=== PATIENT | female | born 1990 | race Caucasian/White ===

== ENCOUNTER 2019-07-01 17:24 | Emergency (ER) | payer SELFPAY ==
--- OUTSIDE RECORDS SUMMARY | 2019-07-01 17:31 | XMS REPORT | Continuity of Care Document ---
Author Organization Unknown Address Unknown Phone Unavailable Allergies There is no data. Medications There is no data. Problems There is no data. Procedures There is no data. Results There is no data. Encounters ACCT No. Visit Date/Time Discharge Status Pt. Type Provider Facility Loc./Unit Complaint [id number] 07/01/2019 17:27:[address] Emergency TIM ALFORD DO Via [facility] ER 13 WKS PREG/LEAKING FLUID/BA CK PAIN
--- NOTE | 2019-07-01 18:05 | NUR ---
REGISTRATION STATES THAT PT LEFT AND HAS NOT CAME BACK.
== END 2019-07-01 18:05 | disposition left against medical advice (07) ==
LOC: ER 17:27
DX: O99.89 Other specified diseases and conditions complicating pregnancy, childbirth and the puerperium (principal); M54.5 Low back pain; Z3A.13 13 weeks gestation of pregnancy

== ENCOUNTER 2020-01-07 19:10 | Inpatient (IN) | payer MEDICAID ==
[~2020-01-07] VITALS: Ht 162 cm; Wt 101.2 kg
--- NOTE | 2020-01-07 19:20 | NUR ---
SHANNA TOVAR presented to unit via from ED, accompanied by s/o, with c/o CONTRACTIONS 40wks. SHANNA TOVAR weighed, gowned, voided, and to bed. EFHM and TOCO applied, VS taken. SHANNA TOVAR oriented to bed controls, call light, TV, heat, and A/C controls.
[2020-01-07 19:40] VITALS: BP 143/79
[2020-01-07 20:00] VITALS: BP 143/89
[2020-01-07 21:36] VITALS: BP 143/79
[2020-01-07 22:15] VITALS: BP 134/81
--- NOTE | 2020-01-07 22:16 | NUR ---
Pt put environmental geologist light, requesting to use the bathroom. Upon standing, pt c/o bilateral leg pain. States that it has been going on for the past week, with increasing in intensity for the last few days. Pt able to ambulated to the bathroom with standby assistance.
[2020-01-08] VITALS (50 sets, daily range): BP systolic 101–165; BP diastolic 55–105
[2020-01-08 01:14] LABS: BASOPHILS % (AUTO) 0 % (0-10); EOSINOPHILS # (AUTO) 0.1 10^3/uL (0.0-0.3); EOSINOPHILS % (AUTO) 1 % (0-10); HEMATOCRIT 23 % (35-52); HEMOGLOBIN 7.4 g/dL (11.5-16.0); LYMPHOCYTES # (AUTO) 2.5 10^3/uL (1.0-4.0); LYMPHOCYTES % (AUTO) 20 % (12-44); MEAN CORPUSCULAR HEMOGLOBIN 30 pg (25-34); MEAN CORPUSCULAR HGB CONC 32 g/dL (32-36); MEAN CORPUSCULAR VOLUME 91 fL (80-99); MEAN PLATELET VOLUME 11.8 fL (9.0-12.2); MONOCYTES # (AUTO) 0.8 10^3/uL (0.0-1.0); MONOCYTES % (AUTO) 6 % (0-12); NEUTROPHILS # (AUTO) 9.1 10^3/uL (1.8-7.8); NEUTROPHILS % (AUTO) 72 % (42-75); PLATELET COUNT 185 10^3/uL (130-400); WHITE BLOOD COUNT 12.6 10^3/uL (4.3-11.0)
[2020-01-08] MEDS: D5 LR IV SOLUTION 1,000 ML IV SCH ×2 (03:32→10:14)
[2020-01-08] MEDS ORDERED: NITR-65 PO (04:44)
[2020-01-08] MEDS ORDERED: PREN-142 PO (08:19)
--- NOTE | 2020-01-08 08:22 | History & Physical-OB ---
OB - Chief Complaint & HPI Date/Time Date of Admission: Date of Admission: Jan 07, 2020 at 19:53 Date seen by a Provider: Jan 08, 2020 Time Seen by a Provider: 08:16 Chief Complaint/History OB-Reason for Admission/Chief: Obstetrical Complication Hx : 5 Hx Para: 3 Expected Date of Delivery: Jan 07, 2020 Gestational Age in Weeks: 40 Gestational Age in Days: 1 Indication for induction: medical complication Other reason for admission: at 40w1d by LMP and second trimester US, transferred care at 40 weeks with complicated by polyhydramnios (apparently idiopathic, reports negative glucola). BPP 6/8 for breathing, admitted for IOL due to poly and abnormal BPP. History of Labs A neg, antibody neg. RI. HIV/HepB/RPR/HepC neg. Other Per pt report, negative GBS and glucola, records not available. Allergies and Home Medications Allergies Coded Allergies: No Known Drug Allergies (Unverified , 01/07/20) Home Medications Nitrofurantoin Monohyd/M-Cryst 100 Mg Capsule, 1 TAB PO BID, (Reported) Vit No.124/Iron/FA 1 Each Tablet, 1 EACH PO DAILY, (Reported) Patient Home Medication List Home Medication List Reviewed: Yes OB - History Hx of Present Ultrasounds: Other (40 week BPP with STERLING 29, vertex, 6/8 for breathing) Obstetrical Complications: Other (polyhydramnios, late transfer of care) Information Induced Hypertension: No Maternal Gestational Diabetes: No Hemorrhage: No Obstetrical History Hx : 5 Hx Para: 3 Hx # Term Pregnancies: 3 Hx # Pregnancies: 0 Number of Living Children: 3 Hx Termination: No Hx Total # of Abortions (Spona: 1 Hx Multiple Gestation: No Hx Ectopic : No Hx Stillbirth: No Hx Complication: Yes (polyhydramnios x 3) Hx Induced Hypertens: No Hx Maternal Gestational Diabet: No Hx Hemorrhage: No Delivery History Hx Dystocia: No Hx Forceps Assisted Delivery: No Hx Vacuum Extraction Assisted: Yes Hx Placenta Abnormality: No Hx Distress: No Hx Large For Gestational Age I: No Hx Small for Gestational Age I: No Hx Section: No Hx Vaginal Delivery Post C-Sec: No Hx Blood Disorders: No Adverse Rxn to Tranfusion: No Patient Past Medical History PMHx: Nephrolithiasis recurrent UTI SurgHx: Ureteral stents Social History/Family History HIV/AIDS: No Recent Infectious Disease Expo: No Sexually Transmitted Disease: No Alcohol Use: Denies Use Recreational Drug Use: No Smoking Cessation: Current every day smoker Immunizations Date of Influenza Vaccine: Nov 07, 2019 Rubella: immune RPR/VDRL: Negative GBS Status: Unknown HBsAG: Negative OB - Admission Exam Physical Exam Vitals: Vital Signs 01/07/20 01/08/20 01/08/20 21:36 03:30 06:30 Temp 36.4 Pulse 81 Resp 18 B/P (MAP) 142/80 (100) Pulse Ox 99 O2 Delivery Room Air HEENT: NCAT Abdomen: Non tender Cervical Dilatation: 4cm Effacement: 50% Station: -3 Membranes: Intact Heart Rate: 120's Accelerations: Accelerations Present Short Term Variability: Present Electrotyper Variability: Average (6-25) Contractions on Admission: >10 Minutes Apart Morales Scoring Tool (Modified) Dilation (cm): 3-4cm (2) Effacement (%): 51-79% (2) Descent/Station: -3 (0) Cervix Consistency: Soft (2) Cervix Position: Anterior (2) Add 1 point for: Each previous vaginal delivery (1) (3) Labs Laboratory Tests Test 01/08/20 00:30 01/08/20 01:05 01/08/20 06:49 Range/Units White Blood Count 12.6 H 4.3-11.0 10^3/uL Red Blood Count 2.51 L 3.80-5.11 10^6/uL Hemoglobin 7.4 L 11.5-16.0 g/dL Hematocrit 23 L 35-52 % Mean Corpuscular Volume 91 80-99 fL Mean Corpuscular Hemoglobin 30 25-34 pg Mean Corpuscular Hemoglobin Concent 32 32-36 g/dL Red Cell Distribution Width 15.2 H 10.0-14.5 % Platelet Count 185 130-400 10^3/uL Mean Platelet Volume 11.8 9.0-12.2 fL Immature Granulocyte % (Auto) 1 % Neutrophils (%) (Auto) 72 42-75 % Lymphocytes (%) (Auto) 20 12-44 % Monocytes (%) (Auto) 6 0-12 % Eosinophils (%) (Auto) 1 0-10 % Basophils (%) (Auto) 0 0-10 % Neutrophils # (Auto) 9.1 H 1.8-7.8 10^3/uL Lymphocytes # (Auto) 2.5 1.0-4.0 10^3/uL Monocytes # (Auto) 0.8 0.0-1.0 10^3/uL Eosinophils # (Auto) 0.1 0.0-0.3 10^3/uL Basophils # (Auto) 0.0 0.0-0.1 10^3/uL Immature Granulocyte # (Auto) 0.1 0.0-0.1 10^3/uL Glucometer 81 70-110 MG/DL OB - Assessment/Plan/Diagnosis Assessment Admission Dx Term intrauterine 40 weeks gestation Polyhydramnios Late transfer of care Blood type A neg Rubella Immune GBS unknown Admission Status: Inpatient Order (span 2 midnights) Reason for Inpatient Admission: Labor, delivery and course Plan Plan: Induction Induction Method: WILY RIVER MD Jan 08, 2020 08:22
--- NOTE | 2020-01-08 08:52 | NUR ---
anesthesia notified of pt's request for epidural placement
[2020-01-08] MEDS ORDERED: fentaNYL INJECTION 100 MCG/2 ML AMP ONE ×2 (09:06→17:03)
[2020-01-08] MEDS ORDERED: BUPIVACAINE 0.25% 30 ML (SENSORCAINE) VIAL ONE ×2 (09:07→18:01)
[2020-01-08] MEDS ORDERED: fentaNYL 2 mcg/ml BUPIVA 0.125 100 ML ONE (09:12)
[2020-01-08] MEDS ORDERED: OXYTOCIN PRE-MIX DRIP 500 ML IV SCH (09:12)
[2020-01-08] MEDS ORDERED: OXYTOCIN PRE-MIX DRIP 500 ML IV ONE (09:12)
[2020-01-08] MEDS ORDERED: LACTATED RINGERS 1,000 ML IV ONE ×3 (09:22→18:38)
[2020-01-08] MEDS ORDERED: fentaNYL 2 mcg/ml BUPIVA 0.125 100 ML IV SCH (09:22)
[2020-01-08] MEDS ORDERED: CATHETER FLUSH 10 ML SYR IV PRN (09:30)
[2020-01-08] MEDS ORDERED: NALOXONE 0.4 MG/ML 1 ML (NARCAN) VIAL IV PRN ×3 (09:30→18:45)
--- NOTE | 2020-01-08 10:06 | NUR ---
social services assistant here to see pt. Addendum: 01/08/20 at 1007 by DALILA KENDRICK RN error- wrong pt.
[2020-01-08 10:15] LABS: AMPHETAMINE SCREEN, URINE NEGATIVE (NEGATIVE); BARBITURATE SCREEN URINE NEGATIVE (NEGATIVE); BENZODIAZEPINES SCREEN URINE NEGATIVE (NEGATIVE); CANNABINOID SCREEN, URINE NEGATIVE (NEGATIVE); COCAINE SCREEN URINE NEGATIVE (NEGATIVE); METHADONE STAT NEGATIVE (NEGATIVE); METHAMPHETAMINE SCREEN URINE S NEGATIVE (NEGATIVE); OPIATE SCREEN URINE NEGATIVE (NEGATIVE); OXYCODONE STAT NEGATIVE (NEGATIVE); PROPOXYPHENE STAT NEGATIVE (NEGATIVE); TRICYCLIC ANTIDEPRESSANTS SCRE NEGATIVE (NEGATIVE)
[2020-01-08] MEDS ORDERED: CITRIC ACID/SOB CIT (BICITRA) 30 ML UDC PO ONE (16:30)
[2020-01-08] MEDS ORDERED: FAMOTIDINE 20MG/2ML IV (PEPCID) IV ONE (16:30)
[2020-01-08] MEDS ORDERED: LACTATED RINGERS 1,000 ML IV PRN (16:30)
[2020-01-08] MEDS ORDERED: METOCLOPRAMIDE INJ 10 MG/2 ML (REGLAN) IV ONE (16:30)
--- NOTE | 2020-01-08 16:33 | NUR ---
c/section consent signed, placed on chart.
[2020-01-08] MEDS ORDERED: METOCLOPRAMIDE INJ 10 MG/2 ML (REGLAN) ONE (16:34)
[2020-01-08] MEDS ORDERED: CITRIC ACID/SOB CIT (BICITRA) 30 ML UDC ONE (16:34)
[2020-01-08] MEDS ORDERED: FAMOTIDINE 20MG/2ML IV (PEPCID) ONE (16:34)
--- NOTE | 2020-01-08 16:42 | Labor Progress Note ---
Labor Progress Note Labor Progress Note Date Seen by Provider: Jan 08, 2020 Time Seen by Provider: 16:20 Subjective: Pt uncomfortable with contractions. Objective: (Can we insert 24 hour vitals here?) Cervical exam: Consistency: soft Position: anterior Presentation: vertex heart tones: 150 beats per minute, minimal variability, intermittent variable decelerations Tocometer: 3 ctx/10 minutes Assessment/Plan: Zeb Simmons is a (28 /Para 5 / 3,Gestational Age (wks)40 here for IOL for polyhydramnios and abnormal BPP. FSE/TOCO Pitocin held due to decels Anesthesia: Epidural No cervical change in active labor for over 2 hours with suspected LGA and variable decelerations, discussed with patient and recommend , she agrees, discussed with Dr. Tomlin who is also in agreement and will proceed to shortly. Vitals - Labs Vital Signs - I&O Vital Signs Date Time Temp Pulse Resp B/P (MAP) Pulse Ox O2 Delivery O2 Flow Rate FiO2 01/08/20 13:30 65 18 127/73 (91) 98 Room Air 01/08/20 13:15 66 18 133/77 (95) 99 Room Air 01/08/20 13:00 77 18 130/81 (97) 100 Room Air 01/08/20 12:45 77 18 130/81 (97) 100 Room Air 01/08/20 12:30 68 18 126/79 (95) 99 Room Air 01/08/20 12:15 64 18 135/83 (100) 99 Room Air 01/08/20 12:00 64 18 135/83 (100) 99 Room Air 01/08/20 11:45 65 18 131/74 (93) 99 Room Air 01/08/20 11:30 65 18 121/64 (83) 98 Room Air 01/08/20 11:15 65 18 131/73 (92) 97 Room Air 01/08/20 11:00 65 18 131/73 (92) 97 Room Air 01/08/20 10:45 65 18 105/61 (76) 98 Room Air 01/08/20 10:30 65 18 101/58 (72) 98 Room Air 01/08/20 10:15 37.0 68 18 108/60 (76) 99 Room Air 01/08/20 10:00 74 18 109/59 (76) 98 Room Air 01/08/20 09:50 75 18 112/55 (74) 99 Room Air 01/08/20 09:45 79 18 109/62 (78) 100 Room Air 01/08/20 09:40 79 18 111/55 (73) 99 Room Air 01/08/20 09:35 76 18 120/78 (92) 98 Room Air 01/08/20 09:30 78 18 136/63 (87) 100 Room Air 01/08/20 09:25 94 18 165/105 (125) 98 Room Air 01/08/20 09:15 69 18 125/77 (93) Room Air 01/08/20 09:00 77 18 128/73 (91) Room Air 01/08/20 08:30 64 18 121/69 (86) Room Air 01/08/20 08:20 70 18 131/77 (95) Room Air 01/08/20 07:45 37.2 70 18 121/75 (90) Room Air 01/08/20 06:30 81 18 142/80 (100) Room Air 01/08/20 03:30 36.4 71 18 133/81 (98) Room Air 01/07/20 22:15 36.6 68 18 134/81 (98) Room Air 01/07/20 21:36 36.6 77 18 99 Room Air 01/07/20 20:00 77 18 143/89 (107) Room Air 01/07/20 19:40 36.6 77 18 143/79 (100) 99 Room Air Labs Laboratory Tests 01/08/20 00:30: 01/08/20 01:05: White Blood Count 12.6H, Red Blood Count 2.51L, Hemoglobin 7.4L, Hematocrit 23L, Mean Corpuscular Volume 91, Mean Corpuscular Hemoglobin 30, Mean Corpuscular Hemoglobin Concent 32, Red Cell Distribution Width 15.2H, Platelet Count 185, Mean Platelet Volume 11.8, Immature Granulocyte % (Auto) 1, Neutrophils (%) (Auto) 72, Lymphocytes (%) (Auto) 20, Monocytes (%) (Auto) 6, Eosinophils (%) (Auto) 1, Basophils (%) (Auto) 0, Neutrophils # (Auto) 9.1H, Lymphocytes # (Auto) 2.5, Monocytes # (Auto) 0.8, Eosinophils # (Auto) 0.1, Basophils # (Auto) 0.0, Immature Granulocyte # (Auto) 0.1 01/08/20 06:49: Glucometer 81 01/08/20 09:45: Urine Opiates Screen NEGATIVE, Urine Oxycodone Screen NEGATIVE, Urine Methadone Screen NEGATIVE, Urine Propoxyphene Screen NEGATIVE, Urine Barbiturates Screen NEGATIVE, Ur Tricyclic Antidepressants Screen NEGATIVE, Urine Phencyclidine Screen NEGATIVE, Urine Amphetamines Screen NEGATIVE, Urine Methamphetamines Screen NEGATIVE, Urine Benzodiazepines Screen NEGATIVE, Urine Cocaine Screen NEGATIVE, Urine Cannabinoids Screen NEGATIVE WILY HERNÁNDEZ MD Jan 08, 2020 16:42
[2020-01-08] MEDS ORDERED: TERBUTALINE INJ 1 MG/ML (BRETHINE) AMP ONE (16:51)
[2020-01-08] MEDS ORDERED: D5 LR IV SOLUTION 1,000 ML IV SCH ×2 (16:53→18:10)
[2020-01-08] MEDS ORDERED: ceFAZolin 2 GM/50 ML (PRE-MIXED) IV NR (17:00)
[2020-01-08] MEDS ORDERED: metroNIDAZOLE 500MG/100ML IVPB 100 ML IV NR (17:00)
[2020-01-08] MEDS ORDERED: ceFAZolin INJECTION 2,000 MG in WATER (STERILE) FOR INJECTION 10 ML IV ONE (17:00)
--- NOTE | 2020-01-08 17:16 | NUR ---
transferred to OB c/s room via bed with OR staff @ side. pt stable. no sx's of distress noted.
[2020-01-08] MEDS ORDERED: KETAMINE/NaCl 50 MG/5 ML SYRINGE (ED ONLY) ONE ×2 (17:30→17:39)
[2020-01-08] MEDS ORDERED: MIDAZOLAM 2 MG/2 ML (VERSED) VIAL ONE (17:54)
[2020-01-08] MEDS ORDERED: proPOfol 200 MG/20 ML (DIPRIVAN) VIAL IV ONE ×2 (18:01→19:42)
[2020-01-08] MEDS ORDERED: BUPIVACAINE 0.5% 30 ML (SENSORCAINE) VIAL ONE (18:07)
[2020-01-08] MEDS ORDERED: ONDANSETRON 4 MG/2 ML (SDV) Z0FRAN IVP PRN (18:15)
[2020-01-08] MEDS ORDERED: MEASLES,MUMPS,RUBELLA 1 EA INJ SC ONE (18:15)
[2020-01-08] MEDS ORDERED: TETANUS,DIPTH,PERTUSS P/F (BOOSTRIX) 0.5 ML VIAL IM ONE (18:15)
[2020-01-08] MEDS ORDERED: EPIDURAL (fentaNYL 2 MCG/ML BUPIVA 0.125%)100 ML BAG EPI PRN (18:45)
[2020-01-08] MEDS ORDERED: METOCLOPRAMIDE INJ 10 MG/2 ML (REGLAN) IV PRN (18:45)
[2020-01-08] MEDS ORDERED: ONDANSETRON 4 MG/2 ML (SDV) Z0FRAN IV PRN (18:45)
[2020-01-08] MEDS ORDERED: diphenhydrAMINE 50 MG/ML INJ (BENADRYL) IV PRN (18:45)
[2020-01-08] MEDS ORDERED: OXYTOCIN PRE-MIX DRIP 1,000 ML IV ONE (19:42)
[2020-01-08] MEDS: KETOROLAC 30 MG/ML VIAL IVP SCH (19:46)
[2020-01-08] MEDS: OXYTOCIN PRE-MIX DRIP 500 ML IV SCH (20:04)
[2020-01-08] MEDS: oxyCODONE/APAP 10/325MG (PERCOCET 10) TABLET PO PRN (20:04)
[2020-01-08] MEDS: DOCUSATE SODIUM 100 MG (COLACE) CAP PO SCH (20:05)
[2020-01-08] MEDS ORDERED: DOCUSATE SODIUM 100 MG (COLACE) CAP PO SCH (21:00)
[2020-01-08] MEDS: CATHETER FLUSH 10 ML SYR IV SCH ×3 (21:03→23:58)
[2020-01-09 00:03] VITALS: BP 133/68
[2020-01-09] MEDS: OXYTOCIN PRE-MIX DRIP 500 ML IV SCH (00:03)
[2020-01-09] MEDS: KETOROLAC 30 MG/ML VIAL IVP SCH ×2 (01:17→07:35)
[2020-01-09] MEDS: oxyCODONE/APAP 10/325MG (PERCOCET 10) TABLET PO PRN ×3 (01:17→21:08)
[2020-01-09 04:00] VITALS: BP 130/73
--- NOTE | 2020-01-09 04:06 | OPERATIVE REPORT ---
DATE OF SERVICE: 01/08/2020 PREOPERATIVE DIAGNOSIS: Term in labor with polyhydramnios and failure to progress in labor. POSTOPERATIVE DIAGNOSES: Term in labor with polyhydramnios and failure to progress in labor with persistent OP. OPERATIVE PROCEDURE: Primary low transverse delivery of a viable male infant with Apgars of 8 and 9 at 1 and 5 minutes respectively, weight of 8 pounds 12 ounces. time of 1742 and a cord blood gas pH of 7.28. EMPLOYEE RELATIONS ADMINISTRATOR FOR DELIVERY: Dr. Oh. OPERATIVE DESCRIPTION: With the patient in the supine position under satisfactory epidural analgesia, she was prepped and draped in the usual fashion for abdominal surgery. Ivan catheter had been placed in the urinary bladder that was left to dependent drainage. A Pfannenstiel incision was made through the skin with scalpel, the patient's abdomen entered in the usual manner. Bladder retractor placed in position, clean scalpel used to make a 4 cm hysterotomy incision transversely across the lower uterine segment. That was extended by blunt dissection as well. Roberson forceps were applied to facilitate the delivery of the male infant with Apgars and stats as noted above. The was delivered from a straight OP position. On delivery of the head, there was a single nuchal cord that was easily released. The infant was then bulb suctioned on completion of delivery. The umbilical cord doubly clamped and cut and the infant passed to Dr. Oh, qualitative executive researcher in attendance for delivery. Cord bloods were obtained. The placenta delivered spontaneously Roman. It was normal with a 3-vessel cord. The uterus was exteriorized. wiped clean with a wet laparotomy sponge. Uterine incision closed with running locked suture of 2-0 Vicryl. The uterine incision had extended down the extent of the left margin of the incision down to the vagina. This was repaired concurrent with repairing the hysterotomy incision. The uterus was quite boggy at this point. A modified B-Oconnell suture was placed using 2-0 chromic sutures in the usual modified manner, this compressed uterus nicely and controlled the blood loss. With the B-Oconnell suture was placed, the uterus was now returned to the abdominal cavity. All blood clot and debris was removed from the abdominal cavity. With sponge and needle counts correct and hemostasis assured, the anterior parietal peritoneum was closed with running suture of 2-0 Vicryl. Rectus muscles were closed with that suture as well. The rectus fascia was closed with 2-0 Vicryl, subcutaneous tissue was closed with 2-0 Vicryl and the skin was stapled. Sponge and needle counts were correct on completion of the procedure. Estimated blood loss was around a liter. The patient tolerated the procedure well and was transferred to the recovery room in stable condition. The had been taken stable to the full term nursery under the care of Dr. Oh. Job ID: [id number] DocumentID: [id number] Dictated Date: 01/08/2020 18:19:10 Poured Pipe Maker Date: 01/09/2020 03:26:22 Dictated By: JUSTIN BROWN MD
--- NOTE | 2020-01-09 07:10 | Anesthesia-Regional Post-Op ---
Regional Patient Condition Mental Status: Alert, Oriented x3 Circulation: Same as Pre-Op Headache: Absent Sensation: Full Recovery Motor Block: Absent Post Op Complications Complications None Follow Up Care/Instructions Patient Instructions None needed. Anesthesia/Patient Condition Patient is doing well, no complaints, stable vital signs, no apparent adverse anesthesia problems. No complications reported per nursing. CANELO SUMNER CRNA Jan 09, 2020 07:10
[2020-01-09] MEDS: DOCUSATE SODIUM 100 MG (COLACE) CAP PO SCH ×2 (07:35→21:00)
[2020-01-09 07:37] VITALS: BP 120/71
--- NOTE | 2020-01-09 07:40 | NUR ---
RN to room for assessment. VSS. Incision site ALONDRA with margo, no bleeding or drainage from site. Pt reports minimal bleeding and denies clots. Pt requests shower at this time. IV removed. No redness or swelling at site. Pt encouraged to push call light if she becomes lightheaded or needs anything while showering. Pt educated on incision site care, verbalizes understanding. Pt denies any needs or concerns at this time
--- NOTE | 2020-01-09 08:19 | Progress Note ---
Standard Progress Note Progress Notes/Assess & Plan Date Seen by a Provider: Jan 09, 2020 Time Seen by a Provider: 08:17 Progress/Assessment & Plan This patient is without complaint. She is ambulating, voiding, tolerating oral intake well and has good pain control. Vital Signs Date Time Temp Pulse Resp B/P (MAP) Pulse Ox O2 Delivery O2 Flow Rate FiO2 01/09/20 07:37 36.3 82 18 120/71 (87) 100 Room Air 01/09/20 04:00 36.3 76 18 130/73 (92) 98 Room Air 01/09/20 00:03 37.2 73 18 133/68 (89) 98 Room Air 01/08/20 19:15 37.3 97 18 130/65 (86) 99 Room Air 01/08/20 19:10 37.0 20 135/84 (101) 96 Room Air 01/08/20 19:10 Room Air 01/08/20 19:00 Room Air 01/08/20 19:00 20 134/86 (102) 96 Room Air 01/08/20 18:50 20 134/82 (99) 97 Room Air 01/08/20 18:45 Room Air 01/08/20 18:40 20 134/82 (99) 96 Room Air 01/08/20 18:30 20 117/73 (88) 97 Room Air 01/08/20 18:30 Room Air 01/08/20 18:19 37.4 20 113/71 (85) 97 Room Air 01/08/20 18:19 Room Air 01/08/20 17:15 120 18 134/78 (96) 100 Room Air 01/08/20 17:00 105 18 153/70 (97) 100 Room Air 01/08/20 16:45 87 18 110/64 (79) 100 Room Air 01/08/20 16:30 75 18 111/66 (81) 99 Room Air 01/08/20 16:23 37.2 01/08/20 16:15 80 18 133/76 (95) 98 Room Air 01/08/20 16:00 76 18 125/77 (93) 99 Room Air 01/08/20 15:45 88 18 137/92 (107) 99 Room Air 01/08/20 15:30 96 18 126/64 (84) 100 Room Air 01/08/20 15:15 74 18 126/64 (84) 99 Room Air 01/08/20 15:00 74 18 126/71 (89) 99 Room Air 01/08/20 14:45 69 18 126/78 (94) 98 Room Air 01/08/20 14:30 74 18 104/65 (78) 97 Room Air 01/08/20 14:15 81 18 124/70 (88) 98 Room Air 01/08/20 14:00 71 18 102/62 (75) 96 Room Air 01/08/20 13:48 37.0 01/08/20 13:45 66 18 134/80 (98) 99 Room Air 01/08/20 13:30 65 18 127/73 (91) 98 Room Air 01/08/20 13:15 66 18 133/77 (95) 99 Room Air 01/08/20 13:00 77 18 130/81 (97) 100 Room Air 01/08/20 12:45 77 18 130/81 (97) 100 Room Air 01/08/20 12:30 68 18 126/79 (95) 99 Room Air 01/08/20 12:15 64 18 135/83 (100) 99 Room Air 01/08/20 12:00 64 18 135/83 (100) 99 Room Air 01/08/20 11:45 65 18 131/74 (93) 99 Room Air 01/08/20 11:30 65 18 121/64 (83) 98 Room Air 01/08/20 11:15 65 18 131/73 (92) 97 Room Air 01/08/20 11:00 65 18 131/73 (92) 97 Room Air 01/08/20 10:45 65 18 105/61 (76) 98 Room Air 01/08/20 10:30 65 18 101/58 (72) 98 Room Air 01/08/20 10:15 37.0 68 18 108/60 (76) 99 Room Air 01/08/20 10:15 37.0 68 18 108/60 (76) 99 Room Air 01/08/20 10:00 74 18 109/59 (76) 98 Room Air 01/08/20 09:50 75 18 112/55 (74) 99 Room Air 01/08/20 09:45 79 18 109/62 (78) 100 Room Air 01/08/20 09:40 79 18 111/55 (73) 99 Room Air 01/08/20 09:35 76 18 120/78 (92) 98 Room Air 01/08/20 09:30 78 18 136/63 (87) 100 Room Air 01/08/20 09:25 94 18 165/105 (125) 98 Room Air 01/08/20 09:15 69 18 125/77 (93) Room Air 01/08/20 09:00 77 18 128/73 (91) Room Air 01/08/20 08:30 64 18 121/69 (86) Room Air 01/08/20 08:20 70 18 131/77 (95) Room Air I & O 01/09/20 07:00 Intake Total 4450 ml Output Total 1260 ml Balance 3190 ml Vital signs are stable. Patient is afebrile. The abdomen is benign the surgical incision is clean dry and intact. Fundus is firm nontender and below the umbilicus. Extremities show no clubbing or cyanosis. There is no Homans' sign. Assessment and plan postoperative day #1 status post primary delivery at 40+ weeks gestation. Patient is doing well will have routine convalescent care JUSTIN BROWN MD Jan 09, 2020 08:19
[2020-01-09] MEDS ORDERED: IBUP-1780 PO (08:28)
[2020-01-09] MEDS ORDERED: DCS100C PO (08:28)
[2020-01-09] MEDS ORDERED: OXYC1TAB12 PO (08:28)
--- NOTE | 2020-01-09 08:29 | Discharge Inst-Surgical ---
Discharge Inst-Surgical Depart Medication/Instructions New, Converted or Re-Newed RX: RX on Chart Consults/Follow Up Patient Instructions: As directed Orders & Referrals Follow Up Appt: RTC 1 week for incision check With Dr. Tomlin. Call to make follow up appt. for patient in [address] Oh. Wound Care: Remove margo, apply benzoin and steri strips. Activity Per routine post instructions. Please call in RX to patient pharmacy. Diet as tolerated Patient may shower or tub bathe as desired. Continue home meds Activity Activity as Tolerated: No Diet Discharge Diet: No Restrictions JUSTIN TOMLIN MD Jan 09, 2020 08:29
--- NOTE | 2020-01-09 11:02 | NUR ---
CM/SS visited with patient for social service consult. No DCF report was made. The patient (mother of baby), was lying in bed with the baby (Ramiro) while the Father of baby (FOB) was on the couch. The patient and FOB were pleasant and willing to discuss discharge plans. Home: The patient and FOB own a home together and live with their 2-year-old daughter. Resources: The patient reports they have a car seat, crib, changing table, and diapers. They report they have everything at home they need at this time. The patient is connected already with [facility] and has an appointment on the . Drug Use: The patient stated that she does have a past history with drug use years ago after she lost custody of her 2nd child. She states she has since then been clean and "will never touch that stuff again". The patient's Urinary drug screen was negative. She denies current use. Supports: The patient's significant other and FOB is a good support for the patient. She reports that this relationship has helped her through past traumas. They have been together for 2 years. The patient is not close with any of her family but is close with her FOB's family. The FOB is employed and is the main provider financially. CM/SS will continue to follow.
[2020-01-09 12:08] VITALS: BP 123/71
[2020-01-09] MEDS ORDERED: IBUPROFEN 800 MG (MOTRIN) TAB PO ONE (13:56)
[2020-01-09] MEDS: IBUPROFEN 800 MG (MOTRIN) TAB PO SCH ×2 (13:59→21:01)
[2020-01-09 16:04] VITALS: BP 128/71
[2020-01-09 20:05] VITALS: BP 121/78
--- NOTE | 2020-01-09 20:05 | NUR ---
INITIAL SHIFT ASSESSMENT DONE.
--- NOTE | 2020-01-10 02:05 | NUR ---
PT REFUSES MOTRIN AT THIS TIME.
--- NOTE | 2020-01-10 03:10 | NUR ---
PT REPORTS INCREASED ABD PAIN WITH , BUT DOESN'T WANT TO TAKE ANY MEDS. ENCOURAGED TO TAKE MOTRIN AND PT AGREES.
[2020-01-10 03:12] VITALS: BP 107/68
[2020-01-10] MEDS: IBUPROFEN 800 MG (MOTRIN) TAB PO SCH (03:17)
--- NOTE | 2020-01-10 06:15 | NUR ---
PT DENIES ANY NEEDS AT THIS TIME.
--- NOTE | 2020-01-10 07:30 | NUR ---
Dr Tomlin here to see pt. Orders for d/c rec'd
--- NOTE | 2020-01-10 07:38 | Progress Note ---
Standard Progress Note Progress Notes/Assess & Plan Date Seen by a Provider: Jan 10, 2020 Time Seen by a Provider: 07:36 Progress/Assessment & Plan This patient is without complaint. She is ambulating, voiding, tolerating oral intake well and has good pain control. Vital Signs Date Time Temp Pulse Resp B/P (MAP) Pulse Ox O2 Delivery O2 Flow Rate FiO2 01/09/20 07:37 36.3 82 18 120/71 (87) 100 Room Air 01/09/20 04:00 36.3 76 18 130/73 (92) 98 Room Air 01/09/20 00:03 37.2 73 18 133/68 (89) 98 Room Air 01/08/20 19:15 37.3 97 18 130/65 (86) 99 Room Air 01/08/20 19:10 37.0 20 135/84 (101) 96 Room Air 01/08/20 19:10 Room Air 01/08/20 19:00 Room Air 01/08/20 19:00 20 134/86 (102) 96 Room Air 01/08/20 18:50 20 134/82 (99) 97 Room Air 01/08/20 18:45 Room Air 01/08/20 18:40 20 134/82 (99) 96 Room Air 01/08/20 18:30 20 117/73 (88) 97 Room Air 01/08/20 18:30 Room Air 01/08/20 18:19 37.4 20 113/71 (85) 97 Room Air 01/08/20 18:19 Room Air 01/08/20 17:15 120 18 134/78 (96) 100 Room Air 01/08/20 17:00 105 18 153/70 (97) 100 Room Air 01/08/20 16:45 87 18 110/64 (79) 100 Room Air 01/08/20 16:30 75 18 111/66 (81) 99 Room Air 01/08/20 16:23 37.2 01/08/20 16:15 80 18 133/76 (95) 98 Room Air 01/08/20 16:00 76 18 125/77 (93) 99 Room Air 01/08/20 15:45 88 18 137/92 (107) 99 Room Air 01/08/20 15:30 96 18 126/64 (84) 100 Room Air 01/08/20 15:15 74 18 126/64 (84) 99 Room Air 01/08/20 15:00 74 18 126/71 (89) 99 Room Air 01/08/20 14:45 69 18 126/78 (94) 98 Room Air 01/08/20 14:30 74 18 104/65 (78) 97 Room Air 01/08/20 14:15 81 18 124/70 (88) 98 Room Air 01/08/20 14:00 71 18 102/62 (75) 96 Room Air 01/08/20 13:48 37.0 01/08/20 13:45 66 18 134/80 (98) 99 Room Air 01/08/20 13:30 65 18 127/73 (91) 98 Room Air 01/08/20 13:15 66 18 133/77 (95) 99 Room Air 01/08/20 13:00 77 18 130/81 (97) 100 Room Air 01/08/20 12:45 77 18 130/81 (97) 100 Room Air 01/08/20 12:30 68 18 126/79 (95) 99 Room Air 01/08/20 12:15 64 18 135/83 (100) 99 Room Air 01/08/20 12:00 64 18 135/83 (100) 99 Room Air 01/08/20 11:45 65 18 131/74 (93) 99 Room Air 01/08/20 11:30 65 18 121/64 (83) 98 Room Air 01/08/20 11:15 65 18 131/73 (92) 97 Room Air 01/08/20 11:00 65 18 131/73 (92) 97 Room Air 01/08/20 10:45 65 18 105/61 (76) 98 Room Air 01/08/20 10:30 65 18 101/58 (72) 98 Room Air 01/08/20 10:15 37.0 68 18 108/60 (76) 99 Room Air 01/08/20 10:15 37.0 68 18 108/60 (76) 99 Room Air 01/08/20 10:00 74 18 109/59 (76) 98 Room Air 01/08/20 09:50 75 18 112/55 (74) 99 Room Air 01/08/20 09:45 79 18 109/62 (78) 100 Room Air 01/08/20 09:40 79 18 111/55 (73) 99 Room Air 01/08/20 09:35 76 18 120/78 (92) 98 Room Air 01/08/20 09:30 78 18 136/63 (87) 100 Room Air 01/08/20 09:25 94 18 165/105 (125) 98 Room Air 01/08/20 09:15 69 18 125/77 (93) Room Air 01/08/20 09:00 77 18 128/73 (91) Room Air 01/08/20 08:30 64 18 121/69 (86) Room Air 01/08/20 08:20 70 18 131/77 (95) Room Air I & O 01/09/20 07:00 Intake Total 4450 ml Output Total 1260 ml Balance 3190 ml Vital signs are stable. Patient is afebrile. The abdomen is benign the surgical incision is clean dry and intact. Fundus is firm nontender and below the umbilicus. Extremities show no clubbing or cyanosis. There is no Homans' sign. Assessment and plan postoperative day #1 status post primary delivery at 40+ weeks gestation. Patient is doing well will have routine convalescent care January 10, 2020 Patient is without complaint. She is ambulating, voiding, tolerating oral intake well and requesting discharge home. Vital Signs Date Time Temp Pulse Resp B/P (MAP) Pulse Ox O2 Delivery O2 Flow Rate FiO2 01/10/20 03:12 36.3 66 18 107/68 (81) 99 Room Air 01/09/20 20:05 36.8 80 18 121/78 (92) 99 Room Air 01/09/20 16:04 37.0 75 18 128/71 (90) 97 Room Air 01/09/20 12:08 37.2 81 18 123/71 (88) 98 Room Air 01/09/20 11:00 Room Air I & O 01/10/20 07:00 Intake Total 720 ml Output Total 1000 ml Balance -280 ml Vital signs are stable. Patient is afebrile. Fundus is firm below the umbilicus and nontender. The surgical incision is mallory an dry intact. Extremities show no clubbing cyanosis. There is no Homans' sign. Assessment and plan postoperative day #2 status post primary delivery at 40+ weeks gestation. Plan is for discharge home with follow-up in clinic Final Diagnosis 40-week primary delivery JUSTIN BROWN MD Jan 10, 2020 07:38
--- NOTE | 2020-01-10 07:42 | Discharge Summary ---
Discharge Summary 40-week primary delivery This patient is a 28-year-old patient of Dr. Oh who presented on January 07, 2020 and spontaneous labor. She labored through the night and through the day on January 08, 2020. By the evening of January 07 she had demonstrated progress to 8 cm where she stalled for over 5-hour. The heart rate pattern developed into a category [address] Oh requested delivery for failure to progress with a category 2 heart tracing. Patient was taken to the operating room for primary delivery which was performed without event. The patient recovered uneventfully. On postoperative day #1 the patient was ambulating, voiding, tolerating oral intake well and had good pain control. On postoperative day 2 now the patient is ambulating and voiding well tolerating oral intake and has good pain control. Patient was requesting discharge home and plan was for allow discharge home on postoperative day #2. Principal diagnosis this hospitalization is primary delivery Secondary diagnoses include spontaneous labor, failure to progress in, persis tent OP position, category 2 heart rate tracing Operations and procedures include monitor, Pitocin augmentation of labor, epidural labor analgesia, primary delivery Patient was given appropriate discharge instructions verbally and in writing and a copy was also placed in the chart. Discharge medications are Percocet Motrin and Colace-patient is to continue her home vitamin Clinical Quality Measures DVT/VTE Risk/Contraindication: Risk Factor Score Per Nursin RFS Level Per Nursing on Admit: 2=Moderate JUSTIN BROWN MD Jan 10, 2020 07:42
[2020-01-10 08:13] VITALS: BP 134/92
--- NOTE | 2020-01-10 08:34 | NUR ---
Megan removed per this RN and steri strips applied to incision. Incision with well approximated edges, no drainage. Discharge instructions given following staple removal, with copy of instructions provided to pt along with narcotic script. Pt made aware of follow up appointments and other medications available at [facility]. No questions or concerns voiced at this time. Pt verbalizes understanding of instructions and signs to verify. Pt notified of need to wait for infant instructions prior to dismissal.
--- NOTE | 2020-01-10 08:45 | NUR ---
Prescriptions called in to [facility] per pt request
[2020-01-10] MEDS: DOCUSATE SODIUM 100 MG (COLACE) CAP PO SCH (09:05)
[2020-01-10] MEDS: oxyCODONE/APAP 10/325MG (PERCOCET 10) TABLET PO PRN (09:06)
--- NOTE | 2020-01-10 10:00 | NUR ---
Pt taken off unit via wheelchair accompanied by S.O., , and RN to private vehicle with all personal belongings. No s/s of distress noted.
== END 2020-01-10 10:00 | disposition home or self-care (01) | DRG 788 ==
LOC: WSo 19:10 → EDBD 19:10 → LDRP 19:12 → WSo 19:53 → LDRP 19:53
PROVIDERS: ADMIT Family Medicine; ATTEND Family Medicine
PROC: 10D00Z1 Extraction of Products of Conception, Low, Open Approach (ICD-10-PCS; principal; 2020-01-08 17:18)
DX: O48.0 Post-term pregnancy (principal); O40.3XX0 Polyhydramnios, third trimester, not applicable or unspecified; Z3A.40 40 weeks gestation of pregnancy; Z37.0 Single live birth; O62.0 Primary inadequate contractions; O64.0XX0 Obstructed labor due to incomplete rotation of fetal head, not applicable or unspecified
CPT/HCPCS: 36415; 80306; 82962; 85025; 86780; 86850; 86900; 86901; 87081; 87635; 94664; 99212

== ENCOUNTER 2021-02-14 18:37 | Outpatient (CLI) | payer MEDICAID ==
[~2021-02-14] VITALS: Ht 162.6 cm; Wt 98.8 kg
[~2021-02-14 18:37] MED LIST: DOCU-239 PO; IBUP-1780 PO; NITR-65 PO; OXYC1TAB12 PO; PREN-142 PO
[2021-02-14 19:11] LABS: BILIRUBIN,URINE NEGATIVE (NEGATIVE); CLARITY,URINE SL CLOUDY; COLOR,URINE YELLOW; GLUCOSE, URINE (UA) NEGATIVE (NEGATIVE); KETONES,URINE NEGATIVE (NEGATIVE); LEUKOCYTE ESTERASE ,URINE 3+ (NEGATIVE); NITRITE,URINE POSITIVE (NEGATIVE); PROTEIN,URINE 2+ (NEGATIVE)
[2021-02-14 19:14] VITALS: BP 109/64
[2021-02-14 19:17] VITALS: BP 109/64
[2021-02-14 19:18] LABS: BACTERIA,URINE LARGE /HPF; WBC,URINE 50-100 /HPF
[2021-02-14 19:22] VITALS: BP 109/64
--- NOTE | 2021-02-15 08:30 | Physician Query-Final Dx ---
Clinic Account Progress/Dx Physician Query: Please give diagnosis Please include # weeks gestation Date of Service Feb 14, 2021 at 18:37 NELSY,FebFeb 15, 2021 08:30
== END 2021-02-14 19:45 ==
LOC: WSo 18:37
PROVIDERS: ATTEND Family Medicine
DX: Z34.90 Encounter for supervision of normal pregnancy, unspecified, unspecified trimester (principal); Z3A.00 Weeks of gestation of pregnancy not specified
CPT/HCPCS: 81000; 87088; 99213

== ENCOUNTER 2021-04-08 10:47 | Outpatient (CLI) | payer MEDICAID ==
[2021-04-08 11:11] VITALS: BP 122/80
[2021-04-08] MEDS ORDERED: NS IV 1000 ML 1,000 ML ONE (11:55)
[2021-04-08] MEDS ORDERED: NS IV 1000 ML 1,000 ML IV SCH (12:00)
[2021-04-08 12:27] LABS: BILIRUBIN,URINE NEGATIVE (NEGATIVE); CLARITY,URINE CLOUDY; COLOR,URINE DARK YELLOW; GLUCOSE, URINE (UA) NEGATIVE (NEGATIVE); KETONES,URINE 1+ (NEGATIVE); NITRITE,URINE POSITIVE (NEGATIVE); PH,URINE 7.3 (5-9); PROTEIN,URINE 3+ (NEGATIVE)
[2021-04-08 12:28] LABS: BACTERIA,URINE LARGE /HPF; LEUKOCYTE ESTERASE ,URINE 3+ (NEGATIVE); RBC,URINE TNTC /HPF; WBC,URINE TNTC /HPF
[2021-04-08] MEDS ORDERED: cefTRIAXone 1 GM PRE-MIX 50 ML IV NR (14:00)
--- NOTE | 2021-04-09 08:16 | Physician Query-Final Dx ---
NELSY,04/09/21 0816: Clinic Account Progress/Dx Physician Query: Please give diagnosis Please include # weeks gestation Date of Service Apr 08, 2021 at 10:47 WILY HERNÁNDEZ MD 04/09/21 1517: Clinic Account Progress/Dx DIAGNOSIS: Diagnosis Third trimester 35 weeks gestation Urinary tract infection in Contractions without cervical change NELSY,FebApr 09, 2021 08:16 WILY HERNÁNDEZ MD Apr 09, 2021 15:17
== END 2021-04-08 14:55 | disposition home or self-care (01) ==
LOC: WSo 10:47 → LDRP 10:47 → WSo 14:55
PROVIDERS: ATTEND Family Medicine
DX: O47.03 False labor before 37 completed weeks of gestation, third trimester (principal); O23.43 Unspecified infection of urinary tract in pregnancy, third trimester; Z3A.35 35 weeks gestation of pregnancy
CPT/HCPCS: 81000; 87088; 96361; 96374; G0463; 99214

== ENCOUNTER 2021-08-25 12:00 | Emergency (ER) | payer MEDICAID ==
[~2021-08-25] VITALS: Ht 162.7 cm; Wt 98.8 kg
[2021-08-25 12:12] VITALS: BP 126/85
--- NOTE | 2021-08-25 12:36 | ED Back Pain ---
General Stated Complaint: BACK PAIN Source of Information: Patient Exam Limitations: No Limitations History of Present Illness Date Seen by Provider: Aug 25, 2021 Time Seen by Provider: 12:34 Initial Comments Patient is a 30-year-old female who presents ED with lower back pain. Back pain over the past week. Pain is described as sharp worse with getting up and moving around. She also describes some spasming type pain on the right sided lower back. Pain does appear to radiate to her right upper thigh. She denies of any bowel or urine incontinence, saddle paresthesia, fever, weight loss, drug use. She had a similar type pain few months ago. She states she had a with an epidural earlier this year. She states she has been taken Tylenol ibuprofen. No falls, urinary symptoms, abdominal pain, vomiting, diarrhea, drug use. Allergies and Home Medications Allergies Coded Allergies: No Known Drug Allergies (Unverified , 01/07/20) Patient Home Medication List Home Medication List Reviewed: Yes Cephalexin (Cephalexin) 500 Mg Tablet, 500 MG PO TID Prescribed by: RENITA AGUERO on 08/25/21 1335 Hydrocodone/Acetaminophen (Hydrocodone-Acetamin 5-325 mg) 5 Mg-325 Mg Tablet, 1 TAB PO Q4H PRN for PAIN-MODERATE (5-7) Prescribed by: RENITA AGUERO on 08/25/21 1335 Vit No.124/Iron/FA ( Vitamin Tablet) 1 Each Tablet, 1 EACH PO DAILY, (Reported) Entered as Reported by: WILY HERNÁNDEZ on 01/08/20 0819 Tizanidine HCl (Tizanidine HCl) 4 Mg Tablet, 4 MG PO TID Prescribed by: RENITA AGUERO on 08/25/21 1335 Review of Systems Constitutional: No chills, No diaphoresis EENTM: No ear pain, No blurred vision, No double vision Respiratory: No cough, No dyspnea on exertion Cardiovascular: No chest pain Gastrointestinal: No abdominal pain, No diarrhea, No vomiting Genitourinary: No decreased output, No discharge Musculoskeletal: back pain; No joint pain; muscle pain Skin: No change in color, No change in hair/nails All Other Systems Reviewed Negative Unless Noted: Yes Past Tcoyoxj-Jfnvrh-Mbuzop Hx Immunizations Up To Date PED Vaccines UTD: Yes Seasonal Allergies Seasonal Allergies: No Past Medical History Surgeries: Yes (Kidney stent ) Respiratory: No Currently Using CPAP: No Currently Using BIPAP: No Cardiac: No Neurological: No Sexually Transmitted Disease: No HIV/AIDS: No Genitourinary: Yes Kidney Infection, Kidney Stones Gastrointestinal: No Musculoskeletal: No Endocrine: No HEENT: No Cancer: No Psychosocial: Yes Anxiety Integumentary: No Blood Disorders: No Adverse Reaction/Blood Tranf: No Family Medical History Thyroid disease 19 MOTHER Physical Exam Vital Signs Vital Signs - First Documented 08/25/21 12:12 Temp 36.9 Pulse 94 Resp 18 B/P (MAP) 126/85 (99) Pulse Ox 97 Capillary Refill : Height, Weight, BMI Height: '" Weight: lbs. oz. kg; 37.36 BMI Method: General Appearance: No Apparent Distress, WD/WN HEENT: PERRL/EOMI, TMs Normal, Normal ENT Inspection Neck: Full Range of Motion, Normal Inspection, Non Tender, Supple Cardiovascular: Regular Rate, Rhythm, No Edema, No Gallop, No JVD, No Murmur Respiratory: Chest Non Tender, Lungs Clear, Normal Breath Sounds, No Accessory Muscle Use, No Respiratory Distress Gastrointestinal: Normal Bowel Sounds, No Organomegaly, No Pulsatile Mass Back: Vertebral Tenderness (Lumbar midline tenderness, right lumbar paraspinal muscle tenderness. No swelling erythema or ecchymosis.) Extremity: Normal Capillary Refill, Normal Inspection, Normal Range of Motion, Non Tender Neurologic/Psychiatric: Alert, Oriented x3, No Motor/Sensory Deficits, Normal Mood/Affect, senior international tax manager II-XII Norm as Tested Skin: Normal Color, Warm/Dry Progress/Results/Core Measures Results/Orders Lab Results Laboratory Tests Test 08/25/21 12:45 Range/Units Urine Color OTHER H Urine Clarity CLOUDY H Urine pH 8.0 5-9 Urine Specific [place] 1.010 L 1.016-1.022 Urine Protein 3+ H NEGATIVE Urine Glucose (UA) NEGATIVE NEGATIVE Urine Ketones NEGATIVE NEGATIVE Urine Nitrite NEGATIVE NEGATIVE Urine Bilirubin NEGATIVE NEGATIVE Urine Urobilinogen 0.2 < = 1.0 MG/DL Urine Leukocyte Esterase 3+ H NEGATIVE Urine RBC (Auto) 3+ H NEGATIVE Urine RBC 10-25 H /HPF Urine WBC TNTC H /HPF Urine Squamous Epithelial Cells 5-10 /HPF Urine Crystals NONE /LPF Urine Bacteria LARGE H /HPF Urine Casts NONE /LPF Urine Mucus NEGATIVE /LPF Urine Culture Indicated YES Urine Test NEGATIVE NEGATIVE My Orders Orders - PRAMOD GUILLERMO Urinalysis (08/25/21 12:02) Hcg,Qualitative Urine (08/25/21 12:02) Lumbar Spine - 2-3 Views (08/25/21 12:33) Ketorolac Injection (Toradol Injection) (08/25/21 12:45) Orphenadrine Inj (Ed Only) (Norflex Inje (08/25/21 12:45) Urine Culture (08/25/21 12:45) Medications Given in ED Current Medications Medications Dose Ordered Sig/Akilah Route Start Time Stop Time Status Last Admin Dose Admin Ketorolac Tromethamine 30 mg ONCE ONCE IM 08/25/21 12:45 08/25/21 12:46 DC 08/25/21 12:47 30 MG Orphenadrine Citrate 60 mg ONCE ONCE IM 08/25/21 12:45 08/25/21 12:46 DC 08/25/21 12:47 60 MG Vital Signs/I&O 08/25/21 12:12 Temp 36.9 Pulse 94 Resp 18 B/P (MAP) 126/85 (99) Pulse Ox 97 Departure Communication (PCP) Patient with lumbar midline tenderness and right lower back pain. Denies of any urinary symptoms. History of kidney stones with bilateral ureter stents placed by Dr. Waite at [facility]. Patient urinalysis concerning for infection. She did not appear toxic. No radiating pain to the abdomen. She states this does not appear to be kidney stone pain. She has no fever, chills, night sweats or drug use. Pain that radiates down to the right thigh. No trauma. X-ray of the lumbar spine without any obvious fracture. She has no neurological red flag findings such as bowel or urine incontinence saddle paresthesia. Similar pain since her epidural earlier this year. Could have pain and discomfort post epidural but would suspect improvement at this time. She does report some spasming type pain and was prescribed tizanidine with improvement by [facility]. She is requesting muscle relaxer. Was given a few days worth of pain medication for breakthrough pain. Recommend continue with ibuprofen. Will discharge with Keflex for urinary tract infection. Recommend recheck with urinalysis in 5 days. Did offer further imaging of her abdomen and pelvis to rule out obstruction of a calculus. She would rather wait. She is requesting something for the pain and if pain worsens she will return back to ED. Return precaution were discussed with patient such as worsening pain. Impression Primary Impression: Back pain Additional Impressions: UTI (urinary tract infection) Nephrolithiasis Disposition: HOME, SELF-CARE Condition: Stable Departure-Patient Inst. Decision time for Depature: 13:32 Ref[facility]: [facility] [place] Primary Care Physician Patient Instructions: Low Back Pain (DC) Scripts Cephalexin (Cephalexin) 500 Mg Tablet 500 MG PO TID for 10 Days, #30 TAB Prov: PRAMOD GUILLERMO 08/25/21 Tizanidine HCl (Tizanidine HCl) 4 Mg Tablet 4 MG PO TID, #10 TAB Prov: PRAMOD GUILLERMO 08/25/21 Hydrocodone/Acetaminophen (Hydrocodone-Acetamin 5-325 mg) 5 Mg-325 Mg Tablet 1 TAB PO Q4H PRN for PAIN-MODERATE (5-7), #6 TAB Prov: PRAMOD GUILLERMO 08/25/21 PRAMOD GUILLERMO Aug 25, 2021 12:36
[2021-08-25] MEDS ORDERED: KETOROLAC 30 MG/ML VIAL IM ONE (12:45)
[2021-08-25] MEDS ORDERED: ORPHENADRINE 60 MG/2 ML (NORFLEX) AMP (ED ONLY) IM ONE (12:45)
[2021-08-25 13:06] LABS: CLARITY,URINE CLOUDY; COLOR,URINE OTHER
[2021-08-25 13:07] LABS: BILIRUBIN,URINE NEGATIVE (NEGATIVE); GLUCOSE, URINE (UA) NEGATIVE (NEGATIVE); KETONES,URINE NEGATIVE (NEGATIVE); NITRITE,URINE NEGATIVE (NEGATIVE); PROTEIN,URINE 3+ (NEGATIVE)
[2021-08-25 13:08] LABS: BACTERIA,URINE LARGE /HPF; LEUKOCYTE ESTERASE ,URINE 3+ (NEGATIVE); WBC,URINE TNTC /HPF
--- NOTE | 2021-08-25 13:21 | Diagnostic Imaging Report ---
EXAM: LUMBAR SPINE - 2-3 VIEWS INDICATION: Low back pain. COMPARISON: None. FINDINGS: Normal alignment. Vertebral body heights are preserved. No substantial spondylotic change. No fractures. Visualized pelvis is intact. Bilateral ureteral stents. Bilateral large calcifications overlying the renal shadows. IMPRESSION: 1. No acute CT findings in the lumbar spine. No substantial spondylotic change. 2. Bilateral ureteral stents and nephrolithiasis. Dictated by: Dictated on workstation # [id number]
[2021-08-25] MEDS ORDERED: CEPH500T PO (13:35)
[2021-08-25] MEDS ORDERED: TIZA-186 PO (13:35)
[2021-08-25] MEDS ORDERED: ACHD5005 PO (13:35)
== END 2021-08-25 13:42 | disposition home or self-care (01) ==
LOC: EDUNIT# 12:00 → ER 12:01
DX: N39.0 Urinary tract infection, site not specified (principal); N20.0 Calculus of kidney; Z96.0 Presence of urogenital implants; Z28.310 Unvaccinated for COVID-19
CPT/HCPCS: 72100; 81000; 84703; 87088

== ENCOUNTER 2021-09-01 15:27 | Emergency (ER) | payer MEDICAID ==
[~2021-09-01] VITALS: Ht 162 cm; Wt 95.0 kg
[~2021-09-01 15:27] MED LIST changes: +ACHD5005 PO; +CEPH500T PO; +TIZA-186 PO
[2021-09-01 15:30] VITALS: BP 112/61
--- NOTE | 2021-09-01 16:03 | ED Back Pain ---
General Chief Complaint: Back Problems Stated Complaint: BACK PAIN Nursing Triage Note: ARRIVED VIA AMB TO [facility] WITH COMPLAINTS OF CONTINUED BACK PAIN THAT STARTED LAST WEEK. STATES SHE HAS BEEN SEEN HERE ONCE FOR IT. Source of Information: Patient Exam Limitations: No Limitations History of Present Illness Date Seen by Provider: Sep 01, 2021 Time Seen by Provider: 16:00 Initial Comments Patient is a 30-year-old female who presents ED with low back pain. She states she has had back pain over the past 2 to 3 weeks. Sharp pain in the lower back with some pain that radiates down the right leg. She denies of any bowel or urine incontinence, saddle paresthesia. Was seen here about a week ago had a negative x-ray for fracture of her lumbar spine. Similar type pain in this location. Received some pain medication with improvement over a few days. Pain is somewhat better today but still having difficulty getting around. She is scheduled follow-up her primary care physician next Monday. She denies fever, chills, night sweats, headache, dizziness, visual changes, drug use, abdominal pain, dysuria, hematuria, flank pain. Allergies and Home Medications Allergies Coded Allergies: No Known Drug Allergies (Unverified , 01/07/20) Patient Home Medication List Home Medication List Reviewed: Yes Cephalexin (Cephalexin) 500 Mg Tablet, 500 MG PO TID Prescribed by: RENITA AGUERO on 08/25/21 1335 Hydrocodone/Acetaminophen (Hydrocodone-Acetamin 5-325 mg) 5 Mg-325 Mg Tablet, 1 TAB PO Q4H PRN for PAIN-MODERATE (5-7) Prescribed by: RENITA AGUERO on 08/25/21 1335 Hydrocodone/Acetaminophen (Hydrocodone-Acetamin 5-325 mg) 5 Mg-325 Mg Tablet, 1 TAB PO Q4H PRN for PAIN-MODERATE (5-7) Prescribed by: RENITA AGUERO on 09/01/21 1700 Naproxen (Naproxen) 500 Mg Tablet, 500 MG PO Q12H Prescribed by: RENITA AGUERO on 09/01/21 1659 Vit No.124/Iron/FA ( Vitamin Tablet) 1 Each Tablet, 1 EACH PO DAILY, (Reported) Entered as Reported by: WILY HERNÁNDEZ on 01/08/20 0819 Tizanidine HCl (Tizanidine HCl) 4 Mg Tablet, 4 MG PO TID Prescribed by: RENITA AGUERO on 08/25/21 5435 Review of Systems Constitutional: No chills, No diaphoresis, No malaise, No weakness EENTM: No blurred vision, No double vision Respiratory: No cough, No dyspnea on exertion Gastrointestinal: No abdominal pain, No nausea, No vomiting Genitourinary: No decreased output, No discharge Musculoskeletal: back pain; No joint pain, No muscle pain, No muscle stiffness Skin: No change in color, No change in hair/nails All Other Systems Reviewed Negative Unless Noted: Yes Past Qrgjzmt-Phkcod-Azmyym Hx Patient Social History Smoking Status: Current Everyday Smoker Substance use?: No Alcohol Use?: No Immunizations Up To Date PED Vaccines UTD: Yes First/Initial COVID19 Vaccinat: declined Seasonal Allergies Seasonal Allergies: No Past Medical History Surgeries: Yes (Kidney stent ) Respiratory: No Currently Using CPAP: No Currently Using BIPAP: No Cardiac: No Neurological: No Sexually Transmitted Disease: No HIV/AIDS: No Genitourinary: Yes Kidney Infection, Kidney Stones Gastrointestinal: No Musculoskeletal: No Endocrine: No HEENT: No Cancer: No Psychosocial: Yes Anxiety Integumentary: No Blood Disorders: No Adverse Reaction/Blood Tranf: No Family Medical History Thyroid disease 19 MOTHER Physical Exam Vital Signs Vital Signs - First Documented 09/01/21 15:30 Temp 36.3 Pulse 96 Resp 16 B/P (MAP) 112/61 (78) Pulse Ox 97 O2 Delivery Room Air Capillary Refill : Less Than 3 Seconds Height, Weight, BMI Height: '" Weight: lbs. oz. kg; 36.00 BMI Method: General Appearance: No Apparent Distress, WD/WN HEENT: PERRL/EOMI, TMs Normal, Normal ENT Inspection, Pharynx Normal Neck: Full Range of Motion, Normal Inspection, Non Tender, Carotid Bruit Cardiovascular: Regular Rate, Rhythm, No Edema, No Gallop, No JVD, No Murmur Respiratory: Chest Non Tender, Lungs Clear, Normal Breath Sounds, No Accessory Muscle Use, No Respiratory Distress Gastrointestinal: Normal Bowel Sounds, No Organomegaly, No Pulsatile Mass, Non Tender, Soft Back: No CVA Tenderness, Vertebral Tenderness (Lumbar midline tenderness) Extremity: Normal Capillary Refill, Normal Inspection, Normal Range of Motion, Non Tender, No Calf Tenderness Neurologic/Psychiatric: Alert, Oriented x3, No Motor/Sensory Deficits, Normal Mood/Affect, blood tester II-XII Norm as Tested Skin: Normal Color, Warm/Dry Progress/Results/Core Measures Results/Orders My Orders Orders - PRAMOD GUILLERMO Ketorolac Injection (Toradol Injection) (09/01/21 16:15) Orphenadrine Inj (Ed Only) (Norflex Inje (09/01/21 16:15) Hydrocodone/Apap 5/325 Tablet (Lortab 5 (09/01/21 16:15) Medications Given in ED Current Medications Medications Dose Ordered Sig/Akil[place] Route Start Time Stop Time Status Last Admin Dose Admin Acetaminophen/ Hydrocodone Bitart 1 ea ONCE ONCE PO 09/01/21 16:15 09/01/21 16:16 DC 09/01/21 16:12 1 EA Ketorolac Tromethamine 30 mg ONCE ONCE IM 09/01/21 16:15 09/01/21 16:16 DC 09/01/21 16:11 30 MG Orphenadrine Citrate 60 mg ONCE ONCE IM 09/01/21 16:15 09/01/21 16:16 DC 09/01/21 16:11 60 MG Vital Signs/I&O 09/01/21 15:30 Temp 36.3 Pulse 96 Resp 16 B/P (MAP) 112/61 (78) Pulse Ox 97 O2 Delivery Room Air Blood Pressure Mean: 78 Departure Communication (PCP) Patient without any neurological red flag findings such as bowel or urine incontinence, saddle paresthesia. No lower extremity weakness. She is af ebrile. Denies weight loss, drug use. She was given dose of Toradol and Norflex with improvement of pain. She scheduled follow-up with her primary care physician next week. She had a recent x-ray that was negative for any acute abnormality. She denies of any fall. Due to her current complaints with some pain into the right leg recommend outpatient follow-up. Further evaluation with outpatient MRI may be warranted. Physical therapy. Due to the pain in the right leg may have some form of radiculopathy secondary to bulging disc. Further evaluation with MRI maybe warranted. She has no flank pain, abdominal pain, radiating pain, urinary symptoms, vomiting, diarrhea, weight loss, drug use, fever suggesting other etiologies such as kidney stone, UTI, surgical abdomen, epidural abscess. If any worsening symptoms return back to ED for further evaluation Impression Primary Impression: Back pain Disposition: 01 HOME, SELF-CARE Condition: Stable Departure-Patient Inst. Decision time for Depature: 16:59 Referrals: [facility] (PCP/Family) Primary Care Physician Patient Instructions: Low Back Pain (DC) Scripts Hydrocodone/Acetaminophen (Hydrocodone-Acetamin 5-325 mg) 5 Mg-325 Mg Tablet 1 TAB PO Q4H PRN for PAIN-MODERATE (5-7), #8 TAB Prov: PRAMOD GUILLERMO 09/01/21 Naproxen (Naproxen) 500 Mg Tablet 500 MG PO Q12H, #14 TAB Prov: PRAMOD GUILLERMO 09/01/21 PRAMOD GUILLERMO Sep 01, 2021 16:03
[2021-09-01] MEDS ORDERED: KETOROLAC 30 MG/ML VIAL IM ONE (16:15)
[2021-09-01] MEDS ORDERED: HYDROcodone/APAP 5 MG/325 MG (LORTAB) TAB PO ONE (16:15)
[2021-09-01] MEDS ORDERED: ORPHENADRINE 60 MG/2 ML (NORFLEX) AMP (ED ONLY) IM ONE (16:15)
[2021-09-01] MEDS ORDERED: ACHD5005 PO (16:59)
[2021-09-01] MEDS ORDERED: NAPR-915 PO (16:59)
== END 2021-09-01 17:05 | disposition home or self-care (01) ==
LOC: EDUNIT# 15:27 → ER 15:29
DX: M54.50 Low back pain, unspecified (principal); F17.200 Nicotine dependence, unspecified, uncomplicated; Z28.310 Unvaccinated for COVID-19
CPT/HCPCS: 99284